=== PATIENT | male | born 1960 | race African-American/Black ===

== ENCOUNTER 2022-06-06 10:00 | Emergency (ER) | payer OTHER, SELFPAY ==
[2022-06-06 10:53] LABS: #Basophils 0.1 thou/uL (0.0-0.2); #Eosinphils 0.1 thou/uL (0.0-0.7); #Lymphocytes 2.5 thou/uL (1.20-3.40); #Monocytes 0.5 thou/uL (0.11-0.59); #Neutrophils 2.7 thou/uL (1.40-6.50); %Basophils 1.2 % (0.0-1.0); %Eosinophils 1.5 % (0.0-10.0); %Lymphocytes 42.3 % (21.0-51.0); %Monocytes 9.2 % (0.0-10.0); %Neutrophils 45.8 % (42.0-75.0); Hemoglobin 15.1 g/dL (14.0-18.0); Mean Corpuscular HGB CONC 32.1 g/dL (32.0-36.0); Mean Corpuscular Hemoglobin 28.6 pg (27.0-31.0); Mean Corpuscular Volume 89.2 fL (78.0-98.0); Mean Platelet Volume 8.6 fL (7.4-10.4); Platelet Count 180 thou/uL (130-400); RBC Distribution Width 11.6 % (11.5-14.5); White Blood Cell (WBC) Count 5.8 thou/uL (4.8-10.8)
[2022-06-06 11:21] LABS: ALT (SGPT) 27 U/L (8-55); AST (SGOT) 36 U/L (5-34); Albumin 4.3 g/dL (3.4-4.8); Alkaline Phosphatase 138 U/L (40-110); Anion Gap 15 mmol/L (10-20); BUN (Urea Nitrogen) 15 mg/dL (8.4-25.7); CK (CPK) 577 U/L (30-200); Calc. Creatinine Clearance 0 mL/min (70-130); Calcium 9.7 mg/dL (7.8-10.44); Carbon Dioxide 27 mmol/L (23-31); Chloride 96 mmol/L (98-107); Estimated GFR 51; Globulin 4.8 g/dL (2.4-3.5); Glucose 466 mg/dL (80-115); Potassium 4.5 mmol/L (3.5-5.1); Protein, Total 9.1 g/dL (5.8-8.1); Sodium 133 mmol/L (136-145)
[2022-06-06] MEDS ORDERED: Insulin Regular 300 UNITS/3 ML VIAL ONE (12:12)
[2022-06-06 12:33] LABS: Actual Bicarbonate (HCO3a) 25.6 mEq/L (22-28); Analyzer IN Cardio ER; CO2 Tension 41.1 mmHg (35.0-45.0); Calcium, Ionized (arterial) 1.15 mmol/L (1.12-1.30); Carboxyhemoglobin (COHb) 0.7 gm% (0.0-3.0); Hemoglobin (Hb) 15.7 g/dL (14.0-18.0); O2 Tension (PaO2), arterial 76.2 mmHg (> 80.0); Potassium - ABG Lab 3.74 mmol/L (3.70-5.30); pH, Arterial 7.41 (7.35-7.45)
[2022-06-06 12:35] LABS: ALV-art Gradient 22.155 mmHg (0-20); Puncture Site RRAP
== END 2022-06-06 15:19 | disposition home or self-care (01) ==
LOC: ERS 10:00
DX: R73.9 Hyperglycemia, unspecified (principal); R03.0 Elevated blood-pressure reading, without diagnosis of hypertension
CPT/HCPCS: 36415; 36416; 80053; 82010; 82550; 82805; 83605; 84484; 85025; 93005; 96361; 96374; J1815